=== PATIENT | male | born 1965 | race Caucasian/White ===

== ENCOUNTER → 2021-10-05 | Outpatient (CLI) | payer OTHER | LOC: M RAD 11:11 | PROVIDERS: ATTEND Physician Assistant | DX: M75.32 Calcific tendinitis of left shoulder (principal); M48.8X2 Other specified spondylopathies, cervical region ==

== ENCOUNTER → 2022-09-28 | Outpatient (CLI) | payer OTHER | LOC: M RAD 07:13 | PROVIDERS: ATTEND Orthopaedic Surgery | DX: M25.561 Pain in right knee (principal) ==

== ENCOUNTER 2025-05-10 06:01 | Day surgery (SDC) | payer BC ==
[~2025-05-10] VITALS: Ht 172.7 cm; Wt 112.6 kg
[~2025-05-10 06:01] MED LIST: AMOX250C3 PO
[2025-05-10] MEDS: LR 1,000 ML IV SCH (06:40)
[2025-05-10] MEDS: ceFAZolin SOD 2 GM IV ONCE IV ONE (07:45)
[2025-05-10] MEDS ORDERED: dexAMETHasone 4 MG/ML 1 ML VIAL As Ordered ONE (07:50)
[2025-05-10] MEDS ORDERED: MIDAZOLAM INJ 2 MG/2 ML VIAL As Ordered ONE (07:50)
[2025-05-10] MEDS ORDERED: LIDOCAINE 2% 100 MG/5 ML SDV (FOR ANES.) As Ordered ONE (07:50)
[2025-05-10] MEDS ORDERED: ONDANSETRON 4MG/2ML VIAL As Ordered ONE (07:50)
[2025-05-10] MEDS ORDERED: ACETAMINOPHEN 1000MG/100ML IV BAG As Ordered ONE (07:50)
[2025-05-10] MEDS ORDERED: SUGAMMADEX SODIUM 200 MG/2 ML VIAL As Ordered ONE (07:50)
[2025-05-10] MEDS ORDERED: ROCURONIUM BROMIDE 50MG/5ML VIAL As Ordered ONE (07:50)
[2025-05-10] MEDS ORDERED: KETOROLAC 30 MG/ML 1 ML VIAL As Ordered ONE (08:04)
[2025-05-10] MEDS ORDERED: LR 1,000 ML IV SCH (08:35)
[2025-05-10] MEDS ORDERED: ONDANSETRON 4MG/2ML VIAL IV PRN (08:35)
[2025-05-10] MEDS: HYDROMORPHONE HCL 0.5 MG/0.5 ML SYRINGE IV PRN (09:11)
[2025-05-10 10:06] VITALS: BP 140/70; TEMP 97.2; O2SAT 98
== END 2025-05-10 10:26 | disposition home or self-care (01) ==
LOC: M SDC 06:01
PROVIDERS: ATTEND Surgery
DX: K42.9 Umbilical hernia without obstruction or gangrene (principal); E66.9 Obesity, unspecified; Z85.828 Personal history of other malignant neoplasm of skin; Z68.37 Body mass index [BMI] 37.0-37.9, adult
CPT/HCPCS: 49591; C1781; J0131; J0665; J0688; J1100; J1171; J1885; J2250; J2405; J3010; S2900